=== PATIENT | male | born 1960 | race Caucasian/White ===

== ENCOUNTER → 2023-12-07 | Day surgery (SDC) | payer BC ==
[~2023-12-07] MED LIST: LOSARTAN POTASS25 MG PO
[2023-12-07] MEDS: LACTATED RINGER'S 1,000 ML ONE (10:45)
[2023-12-07 12:18] VITALS: TEMP 98
[2023-12-07 12:40] VITALS: BP 140/91; PULSE 86; RESP 18; O2SAT 99
== END | disposition home or self-care (01) ==
LOC: OR 10:10
PROVIDERS: ATTEND Internal Medicine Gastroenterology
DX: Z12.11 Encounter for screening for malignant neoplasm of colon (principal); K63.5 Polyp of colon; K57.30 Diverticulosis of large intestine without perforation or abscess without bleeding; K64.8 Other hemorrhoids; Z71.3 Dietary counseling and surveillance; G47.33 Obstructive sleep apnea (adult) (pediatric); I10 Essential (primary) hypertension; Z71.89 Other specified counseling; F17.220 Nicotine dependence, chewing tobacco, uncomplicated; Z01.810 Encounter for preprocedural cardiovascular examination; Z79.899 Other long term (current) drug therapy; Z68.30 Body mass index [BMI] 30.0-30.9, adult; Z80.0 Family history of malignant neoplasm of digestive organs
CPT/HCPCS: 45385; 93005; J7121; 45378; 45380